=== PATIENT | female | born 1930 | race African-American/Black ===

== ENCOUNTER → 2022-06-15 | Outpatient (CLI) | payer MEDICARE, MEDICAID ==
[~2022-06-15] MED LIST: BARIUM SULFATE 176 GM SUSP.RECON ONE; EZ-HD SUSPENSION(BARIUM SULFATE 340GM) PO ONE; FERR325T6 PO; FURO40TA5 PO; HYDR100T26 PO; LEVO75TA7 PO; LINA145C PO; MIRT7.5T11; RAMI10CA68 PO; RIVA1PAT TP; RIVA1PAT3 TD
== END | disposition home or self-care (01) ==
LOC: RAD 09:14
PROVIDERS: ATTEND Internal Medicine Geriatric Medicine
DX: R13.10 Dysphagia, unspecified (principal); R63.4 Abnormal weight loss
CPT/HCPCS: 74220

== ENCOUNTER 2022-06-18 15:55 | Inpatient (IN) | payer MEDICARE, MEDICAID ==
[~2022-06-18] VITALS: Ht 149.9 cm; Wt 54.4 kg
[2022-06-18 19:12] LABS: BASOPHILS % 1.1 % (0.0-2.0); EOSINOPHILS % 1.6 % (0.0-5.0); HEMATOCRIT. 32.1 % (36.0-48.0); HEMOGLOBIN. 10.8 g/dL (12.0-16.0); LYMPHOCYTES % 32.1 % (20.0-50.0); MEAN CORPUSCULAR HEMOGLOBIN 27.7 pg (28.0-32.0); MEAN CORPUSCULAR VOLUME 82.2 fL (81.0-99.0); MEAN PLATELET VOLUME 8.9 fl (7.4-10.4); MONOCYTES % 9.3 % (2.0-8.0); NEUTROPHILS % 55.9 % (40.0-76.0); PLATELET 170 x1000/uL (130-400); RED BLOOD CELL COUNT 3.91 mill/uL (4.2-5.4); RED CELL DISTRIBUTION WIDTH 14.1 % (11.6-14.6)
[2022-06-18 19:55] LABS: CHLORIDE 96 mEq/L (98-107)
[2022-06-19] VITALS: BP 129/57
[2022-06-19] MEDS ORDERED: FURO40TA5 PO (01:59)
[2022-06-19] MEDS ORDERED: MIRT7.5T11 (01:59)
[2022-06-19] MEDS ORDERED: LEVO75TA7 PO (01:59)
[2022-06-19] MEDS ORDERED: FERR325T6 PO (01:59)
[2022-06-19] MEDS ORDERED: RAMI10CA68 PO (01:59)
[2022-06-19] MEDS ORDERED: RIVA1PAT TP (01:59)
[2022-06-19] MEDS ORDERED: LINA145C PO ×2 (01:59→02:04)
[2022-06-19] MEDS ORDERED: HYDR100T26 PO (01:59)
[2022-06-19] MEDS ORDERED: RIVA1PAT3 TD (02:08)
[2022-06-19] MEDS ORDERED: DEXTROSE 50% WATER 50ML SYRINGE IV PRN (05:45)
[2022-06-19] MEDS: LEVOTHYROXINE SODIUM 75MCG TABLET PO SCH (06:49)
[2022-06-19] MEDS: SODIUM CHLORIDE 0.45% 1,000 ML IV SCH (06:49)
[2022-06-19 08:00] VITALS: BP 137/60
[2022-06-19] MEDS: INSULIN LISPRO 100 UNITS/ML SUBCUT SCH ×2 (09:00→17:00)
[2022-06-19] MEDS: BLOOD SUGAR DIAGNOSTIC STRIP TEST SCH ×2 (09:00→17:35)
[2022-06-19] MEDS ORDERED: ACETAMINOPHEN 500MG TABLET PO PRN (09:45)
[2022-06-19] MEDS ORDERED: ENOXAPARIN 30MG/0.3ML SYR SUBCUT SCH (09:45)
[2022-06-19] MEDS ORDERED: DOCUSATE SODIUM 250MG CAPSULE PO SCH (09:45)
[2022-06-19 11:24] LABS: HEMATOCRIT 31.1 % (36.0-48.0); HEMOGLOBIN 10.4 g/dL (12.0-16.0); MEAN CORPUSCULAR HEMOGLOBIN 27.7 pg (28.0-32.0); MEAN CORPUSCULAR VOLUME 82.9 fL (81.0-99.0); PLATELET 127 x1000/uL (130-400); RED BLOOD CELL COUNT 3.75 mill/uL (4.2-5.4); RED CELL DISTRIBUTION WIDTH 14.1 % (11.6-14.6)
[2022-06-19 11:57] LABS: PHOSPHORUS 2.9 mg/dL (2.5-4.9)
[2022-06-19 12:00] VITALS: BP 141/64
[2022-06-19] MEDS: RIVASTIGMINE 4.6 MG/24 HR TD PATCH TD SCH (12:11)
[2022-06-19 13:37] LABS: CREATINE KINASE 49 IU/L (26-192)
[2022-06-19 16:00] VITALS: BP 135/66
[2022-06-19 18:33] LABS: CLARITY URINE CLEAR (CLEAR); COLOR URINE YELLOW (YELLOW); KETONES URINE NEGATIVE (NEGATIVE); LEUKOCYTE ESTERASE URINE NEGATIVE (NEGATIVE); NITRITE URINE NEGATIVE (NEGATIVE); OCCULT BLOOD URINE NEGATIVE (NEGATIVE); PROTEIN URINE NEGATIVE (NEGATIVE); SPECIFIC GRAVITY URINE 1.008 (1.005-1.030); UROBILINOGEN URINE 0.2 E.U./dL (0.2-1.0)
[2022-06-19 20:00] VITALS: BP 141/61
[2022-06-19] MEDS: ATORVASTATIN CALCIUM 20MG TABLET PO SCH (21:00)
[2022-06-19] MEDS: FAMOTIDINE 20MG TABLET PO SCH (22:16)
[2022-06-20] VITALS: BP 96/72
[2022-06-20] MEDS: SODIUM CHLORIDE 0.45% 1,000 ML IV SCH ×2 (01:34→20:19)
[2022-06-20 04:00] VITALS: BP 143/58
[2022-06-20] MEDS: LEVOTHYROXINE SODIUM 75MCG TABLET PO SCH (06:38)
[2022-06-20 07:14] LABS: BASOPHILS % 0.4 % (0.0-2.0); HEMATOCRIT. 27.5 % (36.0-48.0); HEMOGLOBIN. 9.2 g/dL (12.0-16.0); LYMPHOCYTES % 40.8 % (20.0-50.0); MEAN CORPUSCULAR HEMOGLOBIN 27.6 pg (28.0-32.0); MEAN CORPUSCULAR VOLUME 82.5 fL (81.0-99.0); MONOCYTES % 11.6 % (2.0-8.0); NEUTROPHILS % 45.2 % (40.0-76.0); PLATELET 137 x1000/uL (130-400); RED BLOOD CELL COUNT 3.33 mill/uL (4.2-5.4); RED CELL DISTRIBUTION WIDTH 14.5 % (11.6-14.6)
[2022-06-20 08:00] VITALS: BP 135/65
[2022-06-20] MEDS: INSULIN LISPRO 100 UNITS/ML SUBCUT SCH ×2 (09:00→17:00)
[2022-06-20] MEDS ORDERED: POTASSIUM CHLORIDE 20MEQ/PACKET PO NR (09:45)
[2022-06-20] MEDS: BLOOD SUGAR DIAGNOSTIC STRIP TEST SCH ×2 (09:55→17:00)
[2022-06-20] MEDS: DOCUSATE SODIUM 250MG CAPSULE PO SCH (09:56)
[2022-06-20] MEDS: RIVASTIGMINE 4.6 MG/24 HR TD PATCH TD SCH (09:56)
[2022-06-20] MEDS: ENOXAPARIN 30MG/0.3ML SYR SUBCUT SCH (09:57)
[2022-06-20 11:48] VITALS: BP 138/67
[2022-06-20 16:00] VITALS: BP 132/64
[2022-06-20 20:00] VITALS: BP 150/71
[2022-06-20] MEDS: ATORVASTATIN CALCIUM 20MG TABLET PO SCH (20:17)
[2022-06-20] MEDS: FAMOTIDINE 20MG TABLET PO SCH (20:18)
[2022-06-21] VITALS: BP 145/72
[2022-06-21 04:00] VITALS: BP 155/65
[2022-06-21 07:40] LABS: BASOPHILS % 0.6 % (0.0-2.0); EOSINOPHILS % 2.3 % (0.0-5.0); HEMATOCRIT. 26.3 % (36.0-48.0); HEMOGLOBIN. 8.8 g/dL (12.0-16.0); LYMPHOCYTES % 38.6 % (20.0-50.0); MEAN CORPUSCULAR HEMOGLOBIN 27.8 pg (28.0-32.0); MEAN PLATELET VOLUME 9.2 fl (7.4-10.4); NEUTROPHILS % 47.5 % (40.0-76.0); PLATELET 126 x1000/uL (130-400); RED BLOOD CELL COUNT 3.17 mill/uL (4.2-5.4)
[2022-06-21 08:00] VITALS: BP 147/66
[2022-06-21] MEDS: INSULIN LISPRO 100 UNITS/ML SUBCUT SCH ×2 (09:00→17:00)
[2022-06-21] MEDS: BLOOD SUGAR DIAGNOSTIC STRIP TEST SCH ×2 (09:00→17:00)
[2022-06-21] MEDS ORDERED: SORBITOL 70% SOLN 30ML PO NR (09:15)
[2022-06-21] MEDS: DOCUSATE SODIUM 250MG CAPSULE PO SCH (09:26)
[2022-06-21] MEDS: LEVOTHYROXINE SODIUM 75MCG TABLET PO SCH (09:26)
[2022-06-21] MEDS: ENOXAPARIN 30MG/0.3ML SYR SUBCUT SCH (09:27)
[2022-06-21] MEDS ORDERED: NA PHOS,M-B/NA PHOS,DI-BA ENEMA 118ML PR NR (10:00)
[2022-06-21] MEDS: RIVASTIGMINE 4.6 MG/24 HR TD PATCH TD SCH (10:43)
[2022-06-21 12:00] VITALS: BP 126/56
[2022-06-21 12:23] LABS: PHOSPHORUS 3.3 mg/dL (2.5-4.9)
[2022-06-21 16:00] VITALS: BP 126/88
[2022-06-21 17:45] LABS: PROTHROMBIN TIME 10.7 sec (9.6-11.0)
[2022-06-21] MEDS: SODIUM CHLORIDE 0.45% 1,000 ML IV SCH (19:30)
[2022-06-21 20:00] VITALS: BP 148/67
[2022-06-21] MEDS: ATORVASTATIN CALCIUM 20MG TABLET PO SCH (20:50)
[2022-06-21] MEDS: FAMOTIDINE 20MG TABLET PO SCH (20:58)
[2022-06-21] MEDS ORDERED: EPOETIN ALFA-EPBX 4,000 UNIT/ML VIAL SUBCUT NR (21:00)
[2022-06-22] VITALS: BP 145/65
[2022-06-22 04:00] VITALS: BP 144/61
[2022-06-22 08:00] VITALS: BP 146/63
[2022-06-22] MEDS: INSULIN LISPRO 100 UNITS/ML SUBCUT SCH (09:00)
[2022-06-22] MEDS: LEVOTHYROXINE SODIUM 75MCG TABLET PO SCH (09:31)
[2022-06-22] MEDS: BLOOD SUGAR DIAGNOSTIC STRIP TEST SCH (09:31)
[2022-06-22] MEDS: RIVASTIGMINE 4.6 MG/24 HR TD PATCH TD SCH (09:31)
[2022-06-22] MEDS: DOCUSATE SODIUM 250MG CAPSULE PO SCH (09:31)
[2022-06-22] MEDS: ENOXAPARIN 30MG/0.3ML SYR SUBCUT SCH (09:32)
[2022-06-22 09:55] LABS: HEMATOCRIT 25.2 % (36.0-48.0); HEMOGLOBIN 8.6 g/dL (12.0-16.0); MEAN CORPUSCULAR HEMOGLOBIN 28.2 pg (28.0-32.0); MEAN CORPUSCULAR VOLUME 82.8 fL (81.0-99.0); PLATELET 122 x1000/uL (130-400); RED BLOOD CELL COUNT 3.04 mill/uL (4.2-5.4)
[2022-06-22] MEDS ORDERED: OMEPRAZOLE 20MG CAPSULE EXTENDED RELEASE PO SCH (10:45)
[2022-06-22 11:50] VITALS: BP 146/63
[2022-06-22 12:00] VITALS: BP 129/48
[2022-06-22] MEDS ORDERED: EPOETIN ALFA-EPBX 4,000 UNIT/ML VIAL SUBCUT NR (21:00)
[2022-06-25 17:19] LABS: VITAMIN B12 SERUM 1013 pg/mL (211-911)
== END 2022-06-22 16:42 | disposition home health service (06) | DRG 682 ==
LOC: ER 15:55 → 6WST 21:48 → EDBEDREQTM 21:55 → EDBEDREQ 21:55 → EDBEDREQSVC 21:55 → ENRESERV 22:39
PROVIDERS: ADMIT Internal Medicine Geriatric Medicine; ATTEND Internal Medicine Geriatric Medicine
DX: N17.9 Acute kidney failure, unspecified (principal); G93.41 Metabolic encephalopathy; E87.1 Hypo-osmolality and hyponatremia; E86.0 Dehydration; D63.8 Anemia in other chronic diseases classified elsewhere; E11.22 Type 2 diabetes mellitus with diabetic chronic kidney disease; E11.51 Type 2 diabetes mellitus with diabetic peripheral angiopathy without gangrene; N18.9 Chronic kidney disease, unspecified; F02.80 Dementia in other diseases classified elsewhere, unspecified severity, without behavioral disturbance, psychotic disturbance, mood disturbance, and anxiety; I13.10 Hypertensive heart and chronic kidney disease without heart failure, with stage 1 through stage 4 chronic kidney disease, or unspecified chronic kidney disease; G30.9 Alzheimer's disease, unspecified; I25.10 Atherosclerotic heart disease of native coronary artery without angina pectoris; E78.5 Hyperlipidemia, unspecified; R62.7 Adult failure to thrive; J44.9 Chronic obstructive pulmonary disease, unspecified; E11.42 Type 2 diabetes mellitus with diabetic polyneuropathy; E03.9 Hypothyroidism, unspecified; D69.6 Thrombocytopenia, unspecified; E78.00 Pure hypercholesterolemia, unspecified; E86.9 Volume depletion, unspecified; E11.40 Type 2 diabetes mellitus with diabetic neuropathy, unspecified; K59.04 Chronic idiopathic constipation; R13.10 Dysphagia, unspecified; M19.90 Unspecified osteoarthritis, unspecified site; R32 Unspecified urinary incontinence; Z95.1 Presence of aortocoronary bypass graft; Z88.0 Allergy status to penicillin; Z88.8 Allergy status to other drugs, medicaments and biological substances; I25.2 Old myocardial infarction; Z79.84 Long term (current) use of oral hypoglycemic drugs; Z79.899 Other long term (current) drug therapy
CPT/HCPCS: 36415; 71045; 74220; 76770; 80048; 80053; 81003; 82270; 82378; 82550; 82607; 82728; 82746; 82747; 82962; 83036; 83540; 83550; 83735; 83880; 84100; 84443; 84484; 84550; 85014; 85025; 85027; 85044; 93005; 97162; 99285; J0885; J1650